=== PATIENT | female | born 1965 | race Caucasian/White ===

== ENCOUNTER 2020-12-26 02:25 | Emergency (ER) | payer OTHER, MEDICAID ==
[~2020-12-26] VITALS: Ht 172.7 cm; Wt 75.8 kg
--- NOTE | ~2020-12-26 | EMS ---
[address] [address] EMS Patient Care Report Name: BOAZ TREADWELL Room: [facility] Francois#: [id number] Admission: 12/26/20 Attend Phys: Discharge: 12/29/20 Date of : 69 Report #: [id number] THIS REPORT FOR: //name// Report Transmitted: 01/05/2021 10:04 EMS Care Summary BRENNA COOL Incident [id number] @ 12/26/2020 01:56 Incident Location [address] [place] [address] Patient BOAZ TREADWELL Female, 55 Years 1965 Patient Address [address] [place] [address] Patient History Mental disorder, not otherwise specified,Endocrine Condition - Other, Patient Allergies No known allergies, Chief Complaint Psych/Behavioral Crisis Disposition Transported No Lights/[place] Dispatch Reason Psychiatric Problem/Abnormal Behavior/Suicide Attempt Transported To [facility] Narrative CREW DISPATCHED 911 TO PT HAVING PSYCH PROBLEM. UPON ARRIVAL WITH PD FOUND PT LOCKING UP HER APARTMENT. PD STATED PT WAS HAVING PTSD EPISODE FORM HER CHILDHOOD AND WHEN PD FOUND HER SHE WAS FRANTIC. THE PT WAS ALERT AND ORIENTED AND CALM/ COMPLIANT. PT WALKED TO AMBULANCE WITH EMS AND CLIMBED INSIDE. PT SAT DOWN ON STRETCHER AND WAS SECURED W/ STRAPS. PT PLACED ON MONITOR FOR VITALS. PT STATED SHE HAD PTSD AND COULD NOT TALK ABOUT IT. THE PT STATED SHE WANTED TO [facility] [address] [address] EMS Patient Care Report Name: BOAZ TREADWELL Room: [facility]#: [id number] Admission: 12/26/20 Attend Phys: Discharge: 12/29/20 Date of : 69 Report #: [id number] GO [facility]. PT TRANSPORTED TO [facility]. PT STATED SHE WAS TIRED AND WANTED TO SLEEP WHILE IN ROUTE. PT REMAINED CALM AND COMPLIANT WHILE IN ROUTE TO [facility]. PT REPORT CALLED IN TO [facility]. PT MOVED FROM STRETCHER TO ER BED VIA SELF TRANSFER. PT SIGNED. PT REPORT GIVEN TO NURSE. NURSE SIGNED. PT CARE TRANSFERRED TO NURSE. EOR. Initial Vitals @02:07P: 102,R: 18,BP: 172/112, @02:18P: 99,R: 18, @02:07GCS: 15, @02:18GCS: 15, @02:07Glucose: 173, Assessments @02:01MENTAL:SKIN:HEENT:LUNG SOUNDS:ABDOMEN:PELVIS//GI:EXTREMITIES:PULSE:NEURO: Impression Mental disorder Timeline 01:,Call Received :,Dispatch Notified :,Psap Call :56,Dispatched 01:56,En Route 02:00,On Scene 02:01,At Patient 02:07,Depart Scene 02:07,BP: 172/112 M,PULSE: 102,RR: 18 R,SPO2: Ox,ETCO2: ,BG: ,PAIN: ,GCS: , 02:07,BP: / M,PULSE: ,RR: R,SPO2: Ox,ETCO2: ,BG: ,PAIN: ,GCS: 15, 02:07,BP: / M,PULSE: ,RR: R,SPO2: Ox,ETCO2: ,B,PAIN: ,GCS: , 02:18,BP: / M,PULSE: 99,RR: 18 R,SPO2: Ox,ETCO2: ,BG: ,PAIN: ,GCS: , 02:18,BP: / M,PULSE: ,RR: R,SPO2: Ox,ETCO2: ,BG: ,PAIN: ,GCS: 15, 02:23,At Destination 02:37,Call Closed Disclaimer v1.1 Copyright 2020 [employer] This EMS Care Summary contains data elements from the applicable legal record (which may be displayed differently). It is designed to provide pertinent information for the following purposes: continuity of care, clinical quality, and state data reporting. The complete legal record is available to ED staff and administrators of the receiving hospital in [employer]'s Patient Tracker. All data is provided "as is."
[~2020-12-26 02:25] MED LIST: ACTOS15 MG PO; ALBUTEROL INH; ALBUTEROL INH INH; ALBUTEROL2.5 MG/0.5; ATIVAN1 MG; ATIVAN1 MG PO; AUGMENTIN 875875 MG PO; CLARITIN10 M2 PO; COLACE 100 MG100 MG; DESYREL100 MG PO; IRON159 MG PO; LEXAPRO 10 MG T10 MG PO; LISINOPRIL5 MG PO; METAMUCIL0.52 GM; METAMUCIL0.52 GM PO; NORCO 5-325 TA1 EACH PO; OXCARBAZEPINE300 M1 PO; RISPERDAL 3 MG T3 M1 PO; RISPERDAL2 MG PO; SIMETHICON CHEW80 M1 PO; THERA-M CAPLET1 EACH PO; TRILEPTAL 300300 MG PO; VICTOZA0.6 MG/0.1 INJECTION; VICTOZA0.6 MG/0.1 SQ; ZESTRIL5 MG PO
[2020-12-26 03:06] LABS: ABSOLUTE EOSINOPHILS 0.1 thou/uL (0.0-0.7); ABSOLUTE LYMPHOCYTES 4.9 thou/uL (0.8-5.3); ABSOLUTE MONOCYTES 0.9 thou/uL (0.0-1.2); ABSOLUTE NEUTROPHILS 4.3 thou/uL (1.6-8.1); BASOPHILS 0.5 %; EOSINOPHILS 1.2 %; HEMATOCRIT 33.1 % (37.0-47.0); HEMOGLOBIN 10.8 gm/dL (12.0-15.0); LYMPHOCYTES 47.7 %; MCH 26.8 pg (26.0-34.0); MCHC 32.7 g/dL (28.0-37.0); MCV 81.9 fL (80.0-100.0); MONOCYTES 8.5 %; NUCLEATED RBCS 0 /100WBC; PLATELET COUNT* 306 thou/uL (150-400); POLYS 42.1 %; RBC 4.05 mil/uL (4.20-5.00); WBC 10.3 thou/uL (4.0-11.0)
[2020-12-26 03:11] LABS: CALCIUM 9.5 mg/dL (8.5-10.1); CREATININE 0.9 mg/dL (0.6-1.3); POTASSIUM 3.6 mmol/L (3.5-5.1)
[2020-12-26 03:13] LABS: SALICYLATE < 2.8 mg/dL (2.8-20.0)
[2020-12-26 03:16] LABS: ACETAMINOPHEN < 2 ug/mL (10-30); ALBUMIN 3.5 g/dL (3.4-5.0); ALCOHOL < 10 mg/dL (<10); TOTAL BILIRUBIN 0.5 mg/dL (<0.1-1.0); TOTAL PROTEIN 7.4 g/dL (6.4-8.2)
[2020-12-26 04:05] LABS: URINE BILIRUBIN NEGATIVE (Negative); URINE BLOOD TRACE (Negative); URINE CLARITY CLEAR; URINE COLOR YELLOW; URINE GLUCOSE-RANDOM NEGATIVE (Negative); URINE KETONES 1+ (Negative); URINE LEUKOCYTES-REFLEX NEGATIVE (Negative); URINE NITRITE-REFLEX NEGATIVE (Negative); URINE PROTEIN 2+ (Negative); URINE SPECIFIC GRAVITY >= 1.030 (1.005-1.030); URINE UROBILINOGEN 0.2 E.U./dl (0.2-1.0)
[2020-12-26 04:12] LABS: AMP/METHAMP Negative (Negative); BARBITURATES Negative (Negative); BENZODIAZEPINES Negative (Negative); COCAINE Negative (Negative); METHADONE Negative (Negative); OPIATES Negative (Negative); PCP Negative (Negative); THC Negative (Negative)
[2020-12-26 06:09] LABS: CASTS None Seen /LPF (None Seen); MUCUS 0-3 Light strn/LPF (None Seen); SQUAMOUS 4-10 Moderate /LPF (0-3); URINE WBC-REFLEX 6-15 Few /HPF (0-5)
[2020-12-26 06:10] LABS: URINE RBC 0-2 Rare /HPF (0-2)
[2020-12-26 06:11] LABS: BACTERIA-REFLEX 1-9 Few /HPF (None Seen); CRYSTALS None Seen /LPF (None Seen)
[2020-12-29 05:18] LABS: CREATININE 0.7 mg/dL (0.6-1.3); POTASSIUM 4.1 mmol/L (3.5-5.1)
[2020-12-29 11:38] VITALS: BP 133/93
== END 2020-12-29 11:38 ==
LOC: M.ERS 02:25
PROVIDERS: Emergency Medicine
DX: F29 Unspecified psychosis not due to a substance or known physiological condition (principal); F41.9 Anxiety disorder, unspecified; R45.850 Homicidal ideations; Z20.822 Contact with and (suspected) exposure to COVID-19; J45.909 Unspecified asthma, uncomplicated; I10 Essential (primary) hypertension; K21.9 Gastro-esophageal reflux disease without esophagitis; Z90.49 Acquired absence of other specified parts of digestive tract; Z88.8 Allergy status to other drugs, medicaments and biological substances